=== PATIENT | female | born 1980 | race Caucasian/White ===

== ENCOUNTER 2018-01-11 12:40 | Observation (INO) | payer SELFPAY ==
[~2018-01-11] VITALS: Ht 154.9 cm; Wt 93.4 kg
[2018-01-11 13:27] VITALS: BP 130/76
[2018-01-11] MEDS ORDERED: PREN1TAB80 PO (13:28)
[2018-01-11 13:54] LABS: EOSINOPHILS % (AUTO) 0.6 % (1.0-6.0); HEMATOCRIT 33.8 % (36-46); HEMOGLOBIN 11.4 g/dL (12.0-16.0); LYMPHOCYTES # (AUTO) 1.5 K/uL (1.0-4.8); LYMPHOCYTES % (AUTO) 11.9 % (22.0-44.0); MEAN CORPUSCULAR HEMOGLOBIN 29.4 pg (26.0-34.0); MEAN CORPUSCULAR HGB CONC 33.8 G/dL (31.0-37.0); MEAN CORPUSCULAR VOLUME 87 fL (80-100); MONOCYTES # (AUTO) 0.6 K/uL (0.1-1.0); MONOCYTES % (AUTO) 4.5 % (2.0-9.0); PLATELET COUNT (AUTO) 222 K/uL (150-450); RED BLOOD CELL COUNT(AUTO) 3.88 MIL/uL (4.00-5.20); RED CELL DISTRIBUTION WIDTH 14.4 % (11.5-14.5)
[2018-01-11 14:07] LABS: ANION GAP 7 mmol/L (8-16); CALCIUM, TOTAL 8.8 mg/dL (8.8-10.5); CARBON DIOXIDE 25 mmol/L (22-29); CHLORIDE 105 mmol/L (98-107); CREATININE 0.59 mg/dL (0.60-1.30); GLOMERULAR FILTR. RATE CALC > 60 mL/min (>60); GLUCOSE,RANDOM 96 mg/dL (70-110); SODIUM SERUM 137 mmol/L (136-145); UREA NITROGEN, BLOOD 9 mg/dL (7-18)
[2018-01-11 14:12] LABS: HEMOGLOBIN A1C 5.2 % (4.5-6.2)
[2018-01-11 14:13] LABS: ALANINE AMINOTRANSFERASE 15 U/L (12-78); ALBUMIN 2.1 g/dL (3.4-5.0); ALKALINE PHOSPHATASE 153 U/L (46-116); ASPARTATE AMINOTRANSFERASE 14 U/L (15-37); BILIRUBIN,TOTAL 0.1 mg/dL (0.1-1.0); TOTAL PROTEIN, SERUM 5.9 g/dL (6.4-8.2)
== END 2018-01-11 15:10 | disposition home or self-care (01) ==
LOC: 4S 12:40
PROVIDERS: ADMIT Obstetrics & Gynecology; ATTEND Obstetrics & Gynecology
DX: O13.3 Gestational [pregnancy-induced] hypertension without significant proteinuria, third trimester (principal); O09.523 Supervision of elderly multigravida, third trimester; Z3A.33 33 weeks gestation of pregnancy
CPT/HCPCS: 36415; 59025; 80053; 83036; 84550; 85025; G0378

== ENCOUNTER 2018-02-11 18:31 | Inpatient (IN) | payer OTHER ==
[~2018-02-11] VITALS: Ht 154.9 cm; Wt 93.0 kg
[~2018-02-11 18:31] MED LIST: PREN1TAB80 PO
[2018-02-11 19:09] LABS: BASOPHILS % (AUTO) 0.7 % (0.0-2.0); EOSINOPHILS % (AUTO) 0.6 % (1.0-6.0); HEMATOCRIT 34.1 % (36-46); HEMOGLOBIN 11.8 g/dL (12.0-16.0); LYMPHOCYTES # (AUTO) 2.1 K/uL (1.0-4.8); LYMPHOCYTES % (AUTO) 20.4 % (22.0-44.0); MEAN CORPUSCULAR HEMOGLOBIN 29.9 pg (26.0-34.0); MEAN CORPUSCULAR HGB CONC 34.6 G/dL (31.0-37.0); MEAN CORPUSCULAR VOLUME 86 fL (80-100); MONOCYTES # (AUTO) 0.7 K/uL (0.1-1.0); MONOCYTES % (AUTO) 6.2 % (2.0-9.0); NEUTROPHILS # (AUTO) 7.5 K/uL (1.8-7.7); NEUTROPHILS % (AUTO) 72.1 % (40.0-70.0); PLATELET COUNT (AUTO)-OB 169 K/uL (150-450); RED BLOOD CELL COUNT(AUTO) 3.94 MIL/uL (4.00-5.20); RED CELL DISTRIBUTION WIDTH 14.4 % (11.5-14.5)
[2018-02-11 19:26] LABS: ANION GAP 12 mmol/L (8-16); CALCIUM, TOTAL 8.9 mg/dL (8.8-10.5); CARBON DIOXIDE 20 mmol/L (22-29); CHLORIDE 104 mmol/L (98-107); CREATININE 0.72 mg/dL (0.60-1.30); GLOMERULAR FILTR. RATE CALC > 60 mL/min (>60); GLUCOSE,RANDOM 83 mg/dL (70-110); POTASSIUM 3.8 mmol/L (3.5-5.1); SODIUM SERUM 136 mmol/L (136-145); UREA NITROGEN, BLOOD 9 mg/dL (7-18)
[2018-02-11 19:29] LABS: COLLECTION TIME,URINE 24 HR; TPROTEIN TIMED,URINE 34 mg/dL
[2018-02-11 19:30] LABS: TPROTEIN URINE, 24HRS COLL 408 mg/24Hr (0-165)
[2018-02-11 19:33] LABS: ALANINE AMINOTRANSFERASE 15 U/L (12-78); ALBUMIN 2.2 g/dL (3.4-5.0); ALKALINE PHOSPHATASE 196 U/L (46-116); ASPARTATE AMINOTRANSFERASE 18 U/L (15-37); BILIRUBIN,TOTAL 0.2 mg/dL (0.1-1.0); TOTAL PROTEIN, SERUM 5.9 g/dL (6.4-8.2); URIC ACID 4.4 mg/dL (2.6-7.2)
[2018-02-11 19:57] LABS: GLUCOMETER DEV NAME(LOC) 4S 8; GLUCOSE,POINT OF CARE 71 MG/DL (70-110)
[2018-02-11] MEDS ORDERED: OXYTOCIN 30 UNITS/LACT RINGERS 500 ML IV ONE (22:15)
[2018-02-11] MEDS ORDERED: RINGERS SOLUTION,LACTATED 1,000 ML IV PRN (22:15)
[2018-02-11] MEDS ORDERED: METOCLOPRAMIDE HCL 5 MG/ML 2 ML VIAL IVP PRN (22:15)
[2018-02-11] MEDS ORDERED: CITRIC ACID/SODIUM CITRATE 30 ML SOLUTION UDCUP PO PRN (22:15)
[2018-02-11] MEDS: RINGERS SOLUTION,LACTATED 1,000 ML IV SCH (22:46)
[2018-02-11] MEDS ORDERED: DINOPROSTONE 10 MG VAGINAL SUPPOSITORY VG ONE (23:00)
[2018-02-11 23:29] VITALS: BP 140/84
[2018-02-12 01:38] LABS: GLUCOMETER DEV NAME(LOC) 4S 8; GLUCOSE,POINT OF CARE 95 MG/DL (70-110)
[2018-02-12] MEDS ORDERED: OXYGEN THERAPY IH SCH (08:00)
[2018-02-12] MEDS ORDERED: -PHARMACY NOTE- MISC ONE (10:15)
[2018-02-12] MEDS ORDERED: OXYTOCIN 30 UNITS/LACT RINGERS 500 ML IV PRN (10:18)
[2018-02-12] MEDS: FentaNYL CITRATE-PF 100 MCG/2 ML VIAL IVP PRN ×2 (12:13→12:22)
[2018-02-12] MEDS ORDERED: LIDOCAINE HCL 2%/EPI 1:200,000/PF 20 ML VIAL ONE (13:43)
[2018-02-12] MEDS ORDERED: ROPIVACAINE HCL 0.2% 100 ML ED ONE ×2 (13:43→20:54)
[2018-02-12] MEDS ORDERED: ROPIVACAINE HCL 0.2% 100 ML ED PRN (14:07)
[2018-02-12] MEDS ORDERED: NALBUPHINE HCL 10 MG/ML VIAL IVP PRN (14:15)
[2018-02-12] MEDS ORDERED: ONDANSETRON HCL 4 MG/2 ML VIAL IVP PRN (14:15)
[2018-02-12] MEDS ORDERED: DiphenhydrAMINE HCL 50 MG/ML VIAL IVP PRN (14:15)
[2018-02-12 19:52] LABS: GLUCOMETER DEV NAME(LOC) 4S 8; GLUCOSE,POINT OF CARE 61 MG/DL (70-110)
[2018-02-12] MEDS ORDERED: ACETAMINOPHEN 325 MG TABLET PO ONE (21:30)
[2018-02-12] MEDS ORDERED: SODIUM CHLORIDE 0.9% 1,000 ML IV ONE ×2 (21:53→23:19)
[2018-02-12] MEDS ORDERED: AMPICILLIN SODIUM 2 GM/NS 100 ML IV ONE ×2 (23:36→23:45)
[2018-02-12] MEDS ORDERED: GENTAMICIN 120 MG/NACL ISO-OSM 100 ML IV ONE (23:45)
[2018-02-13] MEDS ORDERED: BUPIVACAINE HCL/PF 0.5% 10 ML VIAL ONE (00:17)
[2018-02-13] MEDS: RINGERS SOLUTION,LACTATED 1,000 ML IV SCH (03:33)
[2018-02-13] MEDS ORDERED: AMPICILLIN SODIUM 1 GM/NS 50 ML IV SCH (04:00)
[2018-02-13] MEDS ORDERED: OXYTOCIN 30 UNITS/LACT RINGERS 500 ML IV ONE (04:23)
[2018-02-13] MEDS ORDERED: BENZOCAINE 20%/MENTHOL 56 GM SPRAY CANISTER TP PRN (04:30)
[2018-02-13] MEDS ORDERED: OxyCODONE HCL/ACETAMINOPHEN 5-325 MG TABLET PO PRN ×2 (04:30)
[2018-02-13] MEDS ORDERED: LANOLIN 7 GM OINTMENT TP PRN (04:30)
[2018-02-13] MEDS ORDERED: LIDOCAINE HCL/PF 1% 30 ML VIAL INJ PRN (04:30)
[2018-02-13] MEDS ORDERED: GLYCERIN/WITCH HAZEL LEAF 40 PADS JAR TP PRN (04:30)
[2018-02-13] MEDS: IBUPROFEN 800 MG TABLET PO PRN (04:57)
[2018-02-13] MEDS: MAGNESIUM HYDROXIDE SUSPENSION 30 ML UDCUP PO PRN ×2 (08:45→20:33)
[2018-02-14 06:50] LABS: BASOPHILS % (AUTO) 0.4 % (0.0-2.0); HEMATOCRIT 30.7 % (36-46); HEMOGLOBIN 10.6 g/dL (12.0-16.0); LYMPHOCYTES # (AUTO) 3.6 K/uL (1.0-4.8); LYMPHOCYTES % (AUTO) 14.6 % (22.0-44.0); MEAN CORPUSCULAR HEMOGLOBIN 30.3 pg (26.0-34.0); MEAN CORPUSCULAR HGB CONC 34.5 G/dL (31.0-37.0); MEAN CORPUSCULAR VOLUME 88 fL (80-100); MONOCYTES # (AUTO) 1.2 K/uL (0.1-1.0); MONOCYTES % (AUTO) 4.8 % (2.0-9.0); NEUTROPHILS # (AUTO) 19.6 K/uL (1.8-7.7); NEUTROPHILS % (AUTO) 79.2 % (40.0-70.0); PLATELET COUNT (AUTO)-OB 155 K/uL (150-450); RED BLOOD CELL COUNT(AUTO) 3.49 MIL/uL (4.00-5.20); RED CELL DISTRIBUTION WIDTH 14.5 % (11.5-14.5)
[2018-02-14] MEDS ORDERED: MEASLES/MUMPS/RUBELLA VACCINE, LIVE 0.5 ML/VIAL SQ ONE (07:45)
[2018-02-14] MEDS: MAGNESIUM HYDROXIDE SUSPENSION 30 ML UDCUP PO PRN (10:19)
[2018-02-14] MEDS: IBUPROFEN 800 MG TABLET PO PRN ×2 (10:20→16:29)
[2018-02-14] MEDS ORDERED: IBUP-2070 PO (13:14)
[2018-02-14] MEDS ORDERED: DSS100 PO (13:14)
[2018-02-14] MEDS ORDERED: FERR-89 PO (13:18)
== END 2018-02-14 22:00 | disposition home or self-care (01) | DRG 775 ==
LOC: OBSVTOIN 18:31 → 4S 18:31
PROVIDERS: ADMIT Obstetrics & Gynecology; ATTEND Obstetrics & Gynecology
PROC: 10E0XZZ Delivery of Products of Conception, External Approach (ICD-10-PCS; principal; 2018-02-13)
PROC: 0KQM0ZZ Repair Perineum Muscle, Open Approach (ICD-10-PCS; 2018-02-13)
PROC: 3E0R3BZ Introduction of Anesthetic Agent into Spinal Canal, Percutaneous Approach (ICD-10-PCS; 2018-02-13)
PROC: 00HU33Z Insertion of Infusion Device into Spinal Canal, Percutaneous Approach (ICD-10-PCS; 2018-02-13)
PROC: 3E0234Z Introduction of Serum, Toxoid and Vaccine into Muscle, Percutaneous Approach (ICD-10-PCS; 2018-02-14)
DX: O14.04 Mild to moderate pre-eclampsia, complicating childbirth (principal); O24.424 Gestational diabetes mellitus in childbirth, insulin controlled; O70.1 Second degree perineal laceration during delivery; O76 Abnormality in fetal heart rate and rhythm complicating labor and delivery; Z37.0 Single live birth; Z3A.38 38 weeks gestation of pregnancy; Z23 Encounter for immunization
CPT/HCPCS: 81050; 82962; 84156; 84550; 86850; 86900; 86901; 90707; J0290; J1580; J2590; J2795; J3010; J3490; J7030; J7120

== ENCOUNTER 2019-08-03 11:30 | Observation (INO) | payer OTHER ==
[~2019-08-03] VITALS: Ht 157.5 cm; Wt 95.3 kg
[~2019-08-03 11:30] MED LIST changes: +DSS100 PO; +FERR-89 PO; +IBUP-2070 PO
[2019-08-03 12:29] VITALS: BP 135/79
[2019-08-03 13:03] LABS: BASOPHILS % (AUTO) 0.7 % (0.0-2.0); EOSINOPHILS % (AUTO) 0.3 % (1.0-6.0); HEMATOCRIT 36.9 % (36-46); LYMPHOCYTES # (AUTO) 1.4 K/uL (1.0-4.8); LYMPHOCYTES % (AUTO) 13.5 % (22.0-44.0); MEAN CORPUSCULAR HEMOGLOBIN 28.9 pg (26.0-34.0); MEAN CORPUSCULAR HGB CONC 32.5 G/dL (31.0-37.0); MEAN CORPUSCULAR VOLUME 89 fL (80-100); MONOCYTES # (AUTO) 0.5 K/uL (0.1-1.0); MONOCYTES % (AUTO) 5.1 % (2.0-9.0); NEUTROPHILS # (AUTO) 8.6 K/uL (1.8-7.7); NEUTROPHILS % (AUTO) 80.4 % (40.0-70.0); PLATELET COUNT (AUTO) 216 K/uL (150-450); RED BLOOD CELL COUNT(AUTO) 4.15 MIL/uL (4.00-5.20); RED CELL DISTRIBUTION WIDTH 16.7 % (11.5-14.5)
[2019-08-03 13:12] LABS: ANION GAP 9 mmol/L (8-16); CALCIUM, TOTAL 8.7 mg/dL (8.8-10.5); CARBON DIOXIDE 20 mmol/L (22-29); CHLORIDE 105 mmol/L (98-107); CREATININE 0.69 mg/dL (0.60-1.30); GLOMERULAR FILTR. RATE CALC > 60 mL/min (>60); GLUCOSE,RANDOM 83 mg/dL (70-110); POTASSIUM 3.9 mmol/L (3.5-5.1); SODIUM SERUM 134 mmol/L (136-145); UREA NITROGEN, BLOOD 11 mg/dL (7-18)
[2019-08-03 13:19] LABS: APPEARANCE,URINE CLEAR (CLEAR); BILIRUBIN,URINE NEGATIVE (NEGATIVE); GLUCOSE, URINE (UA) NEGATIVE (NEGATIVE); KETONES,URINE NEGATIVE (NEGATIVE); LEUKOCYTE ESTERASE ,URINE TRACE (NEGATIVE); NITRATE,URINE NEGATIVE (NEGATIVE); OCCULT BLOOD,URINE NEGATIVE (NEGATIVE); PH,URINE 6.5 (5.0-8.0); PROTEIN,URINE SEE CONFIRM (NEGATIVE); UROBILINOGEN,URINE 0.2 mg/dL (<=1.0)
[2019-08-03 13:20] LABS: ALANINE AMINOTRANSFERASE 5 U/L (12-78); ALBUMIN 2.4 g/dL (3.4-5.0); ALKALINE PHOSPHATASE 147 U/L (46-116); ASPARTATE AMINOTRANSFERASE 17 U/L (15-37); BILIRUBIN,TOTAL 0.3 mg/dL (0.1-1.0); TOTAL PROTEIN, SERUM 6.3 g/dL (6.4-8.2); URIC ACID 5.7 mg/dL (2.6-7.2)
[2019-08-03 13:33] LABS: SULFOSALICYLIC ACID,URINE 2+ (Negative)
[2019-08-03 13:35] LABS: BACTERIA,URINE Rare /HPF (None Seen); RBC,URINE None Seen /HPF (0-2); SQUAMOUS EPITHELIAL CELL,UR Moderate /LPF (None Seen); WBC,URINE 0-2 /HPF (0-5)
== END 2019-08-03 14:25 | disposition home or self-care (01) ==
LOC: 4S 11:30
PROVIDERS: ADMIT Obstetrics & Gynecology; ATTEND Obstetrics & Gynecology
DX: O09.523 Supervision of elderly multigravida, third trimester (principal); Z3A.36 36 weeks gestation of pregnancy
CPT/HCPCS: 36415; 80053; 81001; 81002; 84550; 85025; G0378

== ENCOUNTER 2019-08-07 12:34 | Inpatient (IN) | payer OTHER ==
[~2019-08-07] VITALS: Ht 154.9 cm; Wt 94.8 kg
[~2019-08-07 12:34] MED LIST changes: -DSS100 PO; -FERR-89 PO; -IBUP-2070 PO
[2019-08-07] MEDS ORDERED: OXYTOCIN 30 UNITS/LACT RINGERS 500 ML IV ONE (13:08)
[2019-08-07] MEDS ORDERED: RINGERS SOLUTION,LACTATED 1,000 ML IV PRN (13:08)
[2019-08-07] MEDS ORDERED: FentaNYL CITRATE-PF 100 MCG/2 ML VIAL IVP PRN (13:15)
[2019-08-07] MEDS ORDERED: DINOPROSTONE 10 MG VAGINAL SUPPOSITORY VG ONE (13:15)
[2019-08-07] MEDS ORDERED: CITRIC ACID/SODIUM CITRATE 30 ML SOLUTION UDCUP PO PRN (13:15)
[2019-08-07] MEDS ORDERED: METHYLERGONOVINE MALEATE 0.2 MG/ML VIAL IM PRN (13:15)
[2019-08-07] MEDS ORDERED: CALCIUM GLUCONATE 100 MG/ML 10 ML IVP PRN (13:15)
[2019-08-07] MEDS ORDERED: MAGNESIUM SULFATE 4 GM/WATER 100 ML IV ONE (13:15)
[2019-08-07] MEDS ORDERED: METOCLOPRAMIDE HCL 5 MG/ML 2 ML VIAL IVP PRN (13:15)
[2019-08-07] MEDS: RINGERS SOLUTION,LACTATED 1,000 ML IV SCH ×2 (13:30→19:23)
[2019-08-07 13:44] VITALS: BP 142/96
[2019-08-07 13:51] LABS: BASOPHILS % (AUTO) 0.4 % (0.0-2.0); EOSINOPHILS % (AUTO) 0.2 % (1.0-6.0); HEMATOCRIT 36.8 % (36-46); LYMPHOCYTES # (AUTO) 1.4 K/uL (1.0-4.8); LYMPHOCYTES % (AUTO) 12.6 % (22.0-44.0); MEAN CORPUSCULAR HGB CONC 32.6 G/dL (31.0-37.0); MEAN CORPUSCULAR VOLUME 89 fL (80-100); MONOCYTES # (AUTO) 0.5 K/uL (0.1-1.0); MONOCYTES % (AUTO) 4.7 % (2.0-9.0); NEUTROPHILS # (AUTO) 9.4 K/uL (1.8-7.7); NEUTROPHILS % (AUTO) 82.1 % (40.0-70.0); PLATELET COUNT (AUTO)-OB 192 K/uL (150-450); RED BLOOD CELL COUNT(AUTO) 4.14 MIL/uL (4.00-5.20); RED CELL DISTRIBUTION WIDTH 17.3 % (11.5-14.5)
[2019-08-07 13:59] LABS: ALANINE AMINOTRANSFERASE 12 U/L (12-78); ALBUMIN 2.2 g/dL (3.4-5.0); ALKALINE PHOSPHATASE 151 U/L (46-116); ANION GAP 11 mmol/L (8-16); ASPARTATE AMINOTRANSFERASE 18 U/L (15-37); BILIRUBIN,TOTAL 0.3 mg/dL (0.1-1.0); CALCIUM, TOTAL 8.4 mg/dL (8.8-10.5); CARBON DIOXIDE 20 mmol/L (22-29); CHLORIDE 106 mmol/L (98-107); GLOMERULAR FILTR. RATE CALC > 60 mL/min (>60); GLUCOSE,RANDOM 83 mg/dL (70-110); POTASSIUM 3.9 mmol/L (3.5-5.1); SODIUM SERUM 137 mmol/L (136-145); TOTAL PROTEIN, SERUM 6.1 g/dL (6.4-8.2); UREA NITROGEN, BLOOD 10 mg/dL (7-18); URIC ACID 5.1 mg/dL (2.6-7.2)
[2019-08-07] MEDS: MAGNESIUM SULFATE 500 ML IV SCH (14:02)
[2019-08-07] MEDS ORDERED: AMPICILLIN SODIUM 2 GM/NS 100 ML IV ONE (14:15)
[2019-08-07] MEDS: AMPICILLIN SODIUM 1 GM/NS 50 ML IV SCH ×2 (19:42→23:55)
[2019-08-07] MEDS ORDERED: OXYGEN THERAPY IH SCH (20:00)
[2019-08-08] MEDS: MAGNESIUM SULFATE 500 ML IV SCH ×2 (00:04→09:46)
[2019-08-08] MEDS ORDERED: MISOPROSTOL 50 MCG TABLET VG ONE (01:00)
[2019-08-08] MEDS: AMPICILLIN SODIUM 1 GM/NS 50 ML IV SCH ×2 (03:57→07:57)
[2019-08-08] MEDS ORDERED: BUPIVACAINE 0.25%/EPI 1:200,000/PF 10 ML VIAL ONE (05:46)
[2019-08-08] MEDS ORDERED: ROPIVACAINE HCL/PF 0.2% 100 ML ED ONE (05:46)
[2019-08-08] MEDS: OXYTOCIN 30 UNITS/LACT RINGERS 500 ML IV PRN ×2 (06:37→07:06)
[2019-08-08] MEDS: RINGERS SOLUTION,LACTATED 1,000 ML IV SCH (07:08)
[2019-08-08] MEDS ORDERED: RINGERS SOLUTION,LACTATED 1,000 ML IV ONE (08:52)
[2019-08-08] MEDS ORDERED: MAGNESIUM HYDROXIDE SUSPENSION 30 ML UDCUP PO SCH (09:00)
[2019-08-08] MEDS ORDERED: OxyCODONE HCL/ACETAMINOPHEN 5-325 MG TABLET PO PRN ×2 (09:00)
[2019-08-08] MEDS ORDERED: GLYCERIN/WITCH HAZEL LEAF 40 PADS JAR TP PRN (09:00)
[2019-08-08] MEDS ORDERED: BENZOCAINE 20%/MENTHOL 56 GM SPRAY CANISTER TP PRN (09:00)
[2019-08-08] MEDS ORDERED: LANOLIN 7 GM OINTMENT TP PRN (09:00)
[2019-08-08] MEDS ORDERED: MEASLES/MUMPS/RUBELLA VACCINE, LIVE 0.5 ML/VIAL SQ ONE (09:00)
[2019-08-08] MEDS: IBUPROFEN 600 MG TABLET PO PRN ×2 (12:07→21:09)
[2019-08-09] MEDS: IBUPROFEN 600 MG TABLET PO PRN (01:20)
== END 2019-08-09 19:10 | disposition home or self-care (01) | DRG 807 ==
LOC: OBSVTOIN 12:34 → 4S 12:34
PROVIDERS: ADMIT Obstetrics & Gynecology; ATTEND Obstetrics & Gynecology
PROC: 10E0XZZ Delivery of Products of Conception, External Approach (ICD-10-PCS; principal; 2019-08-08)
PROC: 3E0R3BZ Introduction of Anesthetic Agent into Spinal Canal, Percutaneous Approach (ICD-10-PCS; 2019-08-08)
PROC: 00HU33Z Insertion of Infusion Device into Spinal Canal, Percutaneous Approach (ICD-10-PCS; 2019-08-08)
DX: O14.94 Unspecified pre-eclampsia, complicating childbirth (principal); Z37.0 Single live birth; O09.513 Supervision of elderly primigravida, third trimester; Z3A.37 37 weeks gestation of pregnancy
CPT/HCPCS: 83735; 84550; 86850; 86900; 86901; J0290; J2590; J2795; J3475; J3490; J7120